=== PATIENT | male | born 1960 | race Caucasian/White ===

== ENCOUNTER → 2016-06-13 | Outpatient (CLI) | payer BC, MEDICAID ==
[~2016-06-13] MED LIST: ASPI325T6 PO; ASPIRIN 81M81 MG/TA2 PO; CLEOCIN HCL300 MG PO; DIABETA 5MG5 MG/TAB PO; DOXYCYCLINE 10100 MG PO; GLUCOPHAGE1000 MG PO; NEURONTIN100 MG/CAP PO; NORCO 325 MG-51 TAB PO; NORVASC 10MG10 MG PO; PRINIVIL40 MG PO; ROXICODONE 55 MG/TAB PO; TYLENOL 325MG325 MG PO; XARELTO10 MG PO; XARELTO15 MG PO; ZOFRAN ODT8 MG PO
== END ==
LOC: WCC 10:00
DX: T23.322A Burn of third degree of single left finger (nail) except thumb, initial encounter (principal); E11.9 Type 2 diabetes mellitus without complications; Z89.511 Acquired absence of right leg below knee
CPT/HCPCS: 27510; A6197; G0463

== ENCOUNTER 2016-06-26 14:08 | Emergency (ER) | payer BC, MEDICAID ==
[~2016-06-26] VITALS: Ht 10.2 cm; Wt 97.7 kg
[~2016-06-26 14:08] MED LIST changes: -XARELTO10 MG PO; -XARELTO15 MG PO
[2016-06-26 14:11] VITALS: BP 117/76; PULSE 87; TEMP 98.2
[2016-06-26] MEDS ORDERED: XARELTO15 MG PO (14:34)
[2016-06-26 15:24] LABS: BASO # 0.1 (0.0-0.2); BASO % 0.5 % (0.0-2.0); EOS # 0.3 (0.0-0.7); EOS % 2.6 % (0-4.0); GRAN # 6.8 (1.4-6.5); GRAN % 71.1 % (42.2-75.2); HEMATOCRIT 38.6 % (42.0-52.0); HEMOGLOBIN 12.9 g/dl (13.5-18.0); LYMPH # 1.6 (1.2-3.4); MEAN CELL VOLUME 83 fl (80.0-100.0); MEAN CORPUSCULAR HEMOGLOBIN 28 pg (27.0-31.0); MEAN CORPUSCULAR HGB CONC 33 g/dl (33.0-37.0); MEAN PLATELET VOLUME 9.5 fl (7.4-10.4); MONO # 0.8 (0.1-0.6); MONO % 8.5 % (1.7-9.3); PLATELET COUNT 272 K/mm3 (130-400); RED BLOOD COUNT 4.68 M/mm3 (4.20-5.60); REDCELL DISTRIBUTION WIDTH-CV 14.4 % (11.5-14.5); WHITE BLOOD COUNT 9.6 K/mm3 (4.8-10.8)
[2016-06-26 15:26] LABS: ADJUSTED CALCIUM 9.6 mg/dL (8.4-10.2); BILIRUBIN,TOTAL 0.8 mg/dL (0.0-1.0); CALCIUM 9.6 mg/dL (8.4-10.2); CREATININE, serum 1.36 mg/dL (0.66-1.25); POTASSIUM 4.7 mmol/L (3.4-5.0); TOTAL PROTEIN 7.5 gm/dL (6.4-8.2)
[2016-06-26 15:34] LABS: INR 1.1 (0.8-3.0); PROTHROMBIN TIME 12.2 SECONDS (9.7-12.8)
== END 2016-06-26 15:59 | disposition other institution (70) ==
LOC: COL.ER 14:08
PROVIDERS: Physician Assistant
DX: I82.412 Acute embolism and thrombosis of left femoral vein (principal); Z79.01 Long term (current) use of anticoagulants; E11.9 Type 2 diabetes mellitus without complications; Z79.4 Long term (current) use of insulin; I10 Essential (primary) hypertension; Z89.511 Acquired absence of right leg below knee; Z99.3 Dependence on wheelchair

== ENCOUNTER → 2016-07-06 | Outpatient (CLI) | payer BC, MEDICAID ==
[~2016-07-06] MED LIST changes: +XARELTO10 MG PO; +XARELTO15 MG PO
== END ==
LOC: WCC 08:21
DX: T23.322A Burn of third degree of single left finger (nail) except thumb, initial encounter (principal); I87.8 Other specified disorders of veins; E11.42 Type 2 diabetes mellitus with diabetic polyneuropathy
CPT/HCPCS: 27510; 27517; A6197; A6207; G0463

== ENCOUNTER → 2016-07-16 | Outpatient (CLI) | payer BC, MEDICAID | LOC: WCC 09:04 | DX: T23.322A Burn of third degree of single left finger (nail) except thumb, initial encounter (principal) | CPT/HCPCS: 27517; A6207; G0463 ==

== ENCOUNTER → 2016-07-25 | Outpatient (CLI) | payer BC, MEDICAID | LOC: WCC 08:53 | DX: T23.322A Burn of third degree of single left finger (nail) except thumb, initial encounter (principal) | CPT/HCPCS: G0463 ==

== ENCOUNTER → 2016-08-29 | Outpatient (CLI) | payer BC | LOC: WCC 10:13 | DX: I87.8 Other specified disorders of veins (principal); E11.622 Type 2 diabetes mellitus with other skin ulcer; T87.89 Other complications of amputation stump; L97.929 Non-pressure chronic ulcer of unspecified part of left lower leg with unspecified severity; T23.322D Burn of third degree of single left finger (nail) except thumb, subsequent encounter | CPT/HCPCS: 13919; G0463 ==

== ENCOUNTER → 2016-09-07 | Outpatient (CLI) | payer BC, MEDICAID | LOC: WCC 09:11 | DX: T87.89 Other complications of amputation stump (principal); E11.622 Type 2 diabetes mellitus with other skin ulcer; L97.819 Non-pressure chronic ulcer of other part of right lower leg with unspecified severity | CPT/HCPCS: 17717; A6212 ==

== ENCOUNTER → 2016-09-14 | Outpatient (CLI) | payer BC, MEDICAID | LOC: WCC 09:18 | DX: T87.89 Other complications of amputation stump (principal); E11.622 Type 2 diabetes mellitus with other skin ulcer; L97.819 Non-pressure chronic ulcer of other part of right lower leg with unspecified severity | CPT/HCPCS: 17717; A6212 ==

== ENCOUNTER → 2016-09-21 | Outpatient (CLI) | payer BC, MEDICAID | LOC: WCC 09:22 | DX: E11.622 Type 2 diabetes mellitus with other skin ulcer (principal); T87.89 Other complications of amputation stump; L97.819 Non-pressure chronic ulcer of other part of right lower leg with unspecified severity | CPT/HCPCS: 13919; 13973; 17717; 27510; A6197; A6199; A6212; G0463 ==

== ENCOUNTER → 2016-09-28 | Outpatient (CLI) | payer BC, MEDICAID | LOC: WCC 09:21 | DX: T87.89 Other complications of amputation stump (principal); E11.622 Type 2 diabetes mellitus with other skin ulcer; L97.819 Non-pressure chronic ulcer of other part of right lower leg with unspecified severity | CPT/HCPCS: 13973; 17717; A6199; A6212; G0463 ==

== ENCOUNTER → 2016-10-08 | Outpatient (CLI) | payer BC, MEDICAID | LOC: WCC 10:03 | DX: E11.622 Type 2 diabetes mellitus with other skin ulcer (principal); I87.2 Venous insufficiency (chronic) (peripheral); L97.819 Non-pressure chronic ulcer of other part of right lower leg with unspecified severity | CPT/HCPCS: 17717; 27517; A6207; A6212 ==

== ENCOUNTER → 2016-10-15 | Outpatient (CLI) | payer BC, MEDICAID | LOC: WCC 11:22 | DX: T23.322A Burn of third degree of single left finger (nail) except thumb, initial encounter (principal); E11.621 Type 2 diabetes mellitus with foot ulcer; E11.622 Type 2 diabetes mellitus with other skin ulcer | CPT/HCPCS: 13973; 17717; A6199; A6212 ==

== ENCOUNTER → 2016-10-22 | Outpatient (CLI) | payer BC, MEDICAID | LOC: WCC 09:42 | DX: T23.322A Burn of third degree of single left finger (nail) except thumb, initial encounter (principal); E11.622 Type 2 diabetes mellitus with other skin ulcer; E11.621 Type 2 diabetes mellitus with foot ulcer | CPT/HCPCS: 13973; 17717; A6199; A6212; G0463 ==

== ENCOUNTER → 2016-10-29 | Outpatient (CLI) | payer BC, MEDICAID | LOC: WCC 09:13 | DX: E11.622 Type 2 diabetes mellitus with other skin ulcer (principal); T23.322A Burn of third degree of single left finger (nail) except thumb, initial encounter | CPT/HCPCS: 13973; 17717; A6199; A6212 ==

== ENCOUNTER → 2016-11-20 | Outpatient (CLI) | payer BC, MEDICAID | LOC: WCC 09:12 | DX: E11.622 Type 2 diabetes mellitus with other skin ulcer (principal) | CPT/HCPCS: 17717; 27517; A6207; A6212; G0463 ==

== ENCOUNTER → 2016-11-27 | Outpatient (CLI) | payer BC, MEDICAID | LOC: WCC 08:25 | DX: E11.621 Type 2 diabetes mellitus with foot ulcer (principal) | CPT/HCPCS: 13919; 17040; 17717; 27516; A6207; A6212; Q4106 ==

== ENCOUNTER 2016-11-29 20:21 | Emergency (ER) | payer BC, MEDICAID ==
[~2016-11-29] VITALS: Ht 190.5 cm; Wt 97.7 kg
[~2016-11-29 20:21] MED LIST changes: -XARELTO10 MG PO
[2016-11-29 20:25] VITALS: TEMP 98
[2016-11-29] MEDS ORDERED: XARELTO10 MG PO (20:28)
[2016-11-29 21:45] LABS: BASO # 0.1 (0.0-0.2); BASO % 0.5 % (0.0-2.0); GRAN # 9.2 (1.4-6.5); GRAN % 89.7 % (42.2-75.2); HEMATOCRIT 43.4 % (42.0-52.0); LYMPH # 0.7 (1.2-3.4); MEAN CELL VOLUME 78 fl (80.0-100.0); MEAN CORPUSCULAR HEMOGLOBIN 27 pg (27.0-31.0); MEAN CORPUSCULAR HGB CONC 35 g/dl (33.0-37.0); MEAN PLATELET VOLUME 9.4 fl (7.4-10.4); MONO # 0.2 (0.1-0.6); MONO % 2.1 % (1.7-9.3); PLATELET COUNT 325 K/mm3 (130-400); RED BLOOD COUNT 5.58 M/mm3 (4.20-5.60); REDCELL DISTRIBUTION WIDTH-CV 14.3 % (11.5-14.5); WHITE BLOOD COUNT 10.3 K/mm3 (4.8-10.8)
[2016-11-29 21:54] LABS: ADJUSTED CALCIUM 9.1 mg/dL (8.4-10.2); ALBUMIN 4.4 gm/dL (3.5-5.0); BILIRUBIN,TOTAL 0.9 mg/dL (0.0-1.0); CALCIUM 9.4 mg/dL (8.4-10.2); CREATININE, serum 1.11 mg/dL (0.66-1.25); POTASSIUM 4.4 mmol/L (3.4-5.0); TOTAL PROTEIN 7.8 gm/dL (6.4-8.2)
[2016-11-29 23:24] VITALS: BP 157/91; PULSE 93
== END 2016-11-29 23:28 | disposition home or self-care (01) ==
LOC: COL.ER 20:21
PROVIDERS: Physician Assistant
DX: R51 Headache (principal); I10 Essential (primary) hypertension; R11.2 Nausea with vomiting, unspecified; E11.9 Type 2 diabetes mellitus without complications; Z86.718 Personal history of other venous thrombosis and embolism; Z89.511 Acquired absence of right leg below knee; Z79.01 Long term (current) use of anticoagulants; H61.21 Impacted cerumen, right ear; Z79.84 Long term (current) use of oral hypoglycemic drugs
CPT/HCPCS: J1170; J2405; J2550; J7030; J7040

== ENCOUNTER → 2016-12-05 | Outpatient (CLI) | payer BC, MEDICAID ==
[~2016-12-05] MED LIST changes: +XARELTO10 MG PO
== END ==
LOC: WCC 09:14
DX: E11.622 Type 2 diabetes mellitus with other skin ulcer (principal)
CPT/HCPCS: 13919; 17717; 27516; A6207; A6212; Q4106

== ENCOUNTER → 2016-12-14 | Outpatient (CLI) | payer BC, MEDICAID | LOC: WCC 10:46 | DX: E11.622 Type 2 diabetes mellitus with other skin ulcer (principal); L97.819 Non-pressure chronic ulcer of other part of right lower leg with unspecified severity | CPT/HCPCS: 13919; 17040; 17717; 27516; A6207; A6212; Q4106 ==

== ENCOUNTER → 2016-12-21 | Outpatient (CLI) | payer BC, MEDICAID | LOC: WCC 10:11 | DX: E11.622 Type 2 diabetes mellitus with other skin ulcer (principal); L97.819 Non-pressure chronic ulcer of other part of right lower leg with unspecified severity; L97.529 Non-pressure chronic ulcer of other part of left foot with unspecified severity; Z89.511 Acquired absence of right leg below knee; R60.9 Edema, unspecified | CPT/HCPCS: 13919; 17040; 17717; 27510; 27516; A6197; A6207; A6212; Q4106 ==

== ENCOUNTER → 2016-12-28 | Outpatient (CLI) | payer BC, MEDICAID | LOC: WCC 09:53 | DX: E11.622 Type 2 diabetes mellitus with other skin ulcer (principal); L97.919 Non-pressure chronic ulcer of unspecified part of right lower leg with unspecified severity; Z89.511 Acquired absence of right leg below knee | CPT/HCPCS: 13919; 17040; 17717; 27516; A6207; A6212; Q4106 ==

== ENCOUNTER → 2017-01-04 | Outpatient (CLI) | payer BC, MEDICAID | LOC: WCC 08:19 | DX: E11.622 Type 2 diabetes mellitus with other skin ulcer (principal); L97.819 Non-pressure chronic ulcer of other part of right lower leg with unspecified severity; Z89.511 Acquired absence of right leg below knee | CPT/HCPCS: 17717; 27517; A6207; A6212; G0463 ==

== ENCOUNTER → 2017-01-04 | Outpatient (CLI) | payer BC, MEDICAID | LOC: ZCOL.LAB 14:17 | DX: E11.622 Type 2 diabetes mellitus with other skin ulcer (principal); L98.499 Non-pressure chronic ulcer of skin of other sites with unspecified severity ==

== ENCOUNTER → 2017-01-10 | Outpatient (CLI) | payer BC, MEDICAID | LOC: WCC 09:47 | DX: E11.622 Type 2 diabetes mellitus with other skin ulcer (principal); L97.819 Non-pressure chronic ulcer of other part of right lower leg with unspecified severity; Z89.511 Acquired absence of right leg below knee | CPT/HCPCS: 17717; 27517; A6207; A6212; G0463 ==

== ENCOUNTER → 2017-01-24 | Outpatient (CLI) | payer BC, MEDICAID | LOC: WCC 09:48 | DX: E11.622 Type 2 diabetes mellitus with other skin ulcer (principal); L97.819 Non-pressure chronic ulcer of other part of right lower leg with unspecified severity; Z89.511 Acquired absence of right leg below knee | CPT/HCPCS: 13919; 17717; A6212; G0463 ==

== ENCOUNTER → 2017-02-01 | Outpatient (CLI) | payer BC, MEDICAID | LOC: WCC 09:01 | DX: L98.499 Non-pressure chronic ulcer of skin of other sites with unspecified severity (principal) | CPT/HCPCS: 17717; A6212; G0463 ==

== ENCOUNTER → 2017-02-08 | Outpatient (CLI) | payer BC, MEDICAID | LOC: WCC 08:54 | DX: E11.621 Type 2 diabetes mellitus with foot ulcer (principal); L97.919 Non-pressure chronic ulcer of unspecified part of right lower leg with unspecified severity; Z89.511 Acquired absence of right leg below knee | CPT/HCPCS: 17717; A6212 ==

== ENCOUNTER → 2017-02-15 | Outpatient (CLI) | payer BC, MEDICAID | LOC: WCC 09:03 | DX: L97.819 Non-pressure chronic ulcer of other part of right lower leg with unspecified severity (principal); I87.2 Venous insufficiency (chronic) (peripheral); E11.9 Type 2 diabetes mellitus without complications; Z89.511 Acquired absence of right leg below knee | CPT/HCPCS: 17717; 21064; A6021; A6212; G0463 ==

== ENCOUNTER → 2017-02-22 | Outpatient (CLI) | payer BC, MEDICAID | LOC: WCC 02-21 08:40 | DX: L89.899 Pressure ulcer of other site, unspecified stage (principal); Z89.511 Acquired absence of right leg below knee | CPT/HCPCS: 17040; 18867; 27516; A6207; A6209; Q4106 ==

== ENCOUNTER → 2017-03-01 | Outpatient (CLI) | payer BC, MEDICAID | LOC: WCC 02-25 09:46 | DX: L89.899 Pressure ulcer of other site, unspecified stage (principal); E11.9 Type 2 diabetes mellitus without complications; Z89.511 Acquired absence of right leg below knee | CPT/HCPCS: 17040; 17716; 27516; A6207; A6212; Q4106 ==

== ENCOUNTER → 2017-03-08 | Outpatient (CLI) | payer BC, MEDICAID | LOC: WCC 08:23 | DX: T87.89 Other complications of amputation stump (principal); Z89.511 Acquired absence of right leg below knee | CPT/HCPCS: 17040; 17717; 27516; A6207; A6212; Q4106 ==

== ENCOUNTER → 2017-03-15 | Outpatient (CLI) | payer BC, MEDICAID | LOC: WCC 08:39 | DX: L89.899 Pressure ulcer of other site, unspecified stage (principal); Z89.511 Acquired absence of right leg below knee | CPT/HCPCS: 17716; A6212; G0463 ==

== ENCOUNTER → 2017-03-22 | Outpatient (CLI) | payer BC, MEDICAID | LOC: WCC 03-21 10:11 | DX: L89.899 Pressure ulcer of other site, unspecified stage (principal); Z89.511 Acquired absence of right leg below knee | CPT/HCPCS: 17716; A6212; G0463 ==

== ENCOUNTER → 2017-03-29 | Outpatient (CLI) | payer BC, MEDICAID | LOC: WCC 09:25 | DX: E11.621 Type 2 diabetes mellitus with foot ulcer (principal); L97.819 Non-pressure chronic ulcer of other part of right lower leg with unspecified severity; Z89.511 Acquired absence of right leg below knee | CPT/HCPCS: 17716; 27510; A6197; A6212; G0463 ==

== ENCOUNTER → 2017-09-13 | Outpatient (CLI) | payer BC, MEDICAID | LOC: ZCOL.LAB 14:21 | DX: T87.89 Other complications of amputation stump (principal); Z89.511 Acquired absence of right leg below knee; Z88.0 Allergy status to penicillin ==

== ENCOUNTER → 2018-08-13 | Outpatient (CLI) | payer BC | LOC: ZCOL.LAB 15:35 | DX: E11.622 Type 2 diabetes mellitus with other skin ulcer (principal) ==

== ENCOUNTER → 2018-12-04 | Outpatient (CLI) | payer BC | LOC: ZCOL.LAB 13:28 | DX: E11.622 Type 2 diabetes mellitus with other skin ulcer (principal); T87.89 Other complications of amputation stump ==

== ENCOUNTER → 2019-03-17 | Outpatient (CLI) | payer MEDICARE, MEDICAID | LOC: ZCOL.LAB 14:47 | DX: E11.622 Type 2 diabetes mellitus with other skin ulcer (principal) ==

== ENCOUNTER → 2019-12-14 | Outpatient (CLI) | payer MEDICARE, BC | LOC: ZCOL.LAB 14:35 | DX: E11.622 Type 2 diabetes mellitus with other skin ulcer (principal); T87.89 Other complications of amputation stump ==

== ENCOUNTER → 2020-06-13 | Outpatient (CLI) | payer MEDICARE, BC | LOC: ZCOL.LAB 16:21 | DX: L89.90 Pressure ulcer of unspecified site, unspecified stage (principal) ==